=== PATIENT | female | born 1940 | race Caucasian/White ===

== ENCOUNTER → 2018-09-06 10:42 | Outpatient (CLI) | payer MEDICARE, SELFPAY ==
[2018-09-06 10:26] VITALS: BMI 39.4
--- NOTE | 2018-09-06 10:48 | RAD_ITS ---
STUDY: X-RAY - LEFT HAND REASON FOR EXAM: Female, 77 years old. Increasing pain TECHNIQUE: 3 view(s) of the hand. COMPARISON: None. FINDINGS: Multifocal osteoarthritis, including first carpometacarpal joint, third distal and proximal interphalangeal joints, and fourth distal and proximal interphalangeal joints. Mild radiocarpal degenerative disease. No fractures or erosive lesions are seen. RAD/Hand Min 3 Views IMPRESSION: Multifocal degenerative disease as described. Electronically Signed: Cristian Sylvester MD at 23:38 EST Tel , Service support ,
--- NOTE | 2018-09-06 10:48 | RAD_ITS ---
STUDY: X-RAY - RIGHT HAND REASON FOR EXAM: Female, 77 years old. Bilateral hand pain TECHNIQUE: 3 view(s) of the hand. COMPARISON: None. FINDINGS: Normal radiocarpal articulation. Normal distal radioulnar joint. Normal visualized carpal bones. Normal carpal articulations There is degenerative arthrosis of the carpometacarpal articulation of the thumb with lateral subluxation of the first metacarpus. Normal second through fifth carpometacarpal joints. Normal metacarpi. There is degenerative arthrosis of the metacarpophalangeal (MCP) joints. Normal interphalangeal joint of the thumb. Normal proximal and distal phalanges of the thumb. There is degenerative arthrosis of the metacarpophalangeal (MCP) joints. There is diffuse articular joint space narrowing of the proximal and distal interphalangeal joints of the second through fifth fingers, but without erosive changes or periarticular soft tissue swelling. Normal phalanges of the second through fifth fingers. The soft tissue structures are unremarkable. RAD/Hand Min 3 Views IMPRESSION: Significant osteoarthritic type changes of the right hand without findings to suggest rheumatoid arthritis. Electronically Signed: Eduardo Farmer DO at 12:02 EST Tel , Service support ,
== END ==
PROVIDERS: Referring Provider Orthopaedic Surgery; Visit Provider Orthopaedic Surgery
DX: M79.641 Pain in right hand (principal); M79.642 Pain in left hand
CPT/HCPCS: 73130